=== PATIENT | female | born 1995 | race African-American/Black ===

== ENCOUNTER 2022-04-25 04:07 | Emergency (ER) | payer OTHER ==
[~2022-04-25] VITALS: Ht 157.5 cm; Wt 96.9 kg
[~2022-04-25 04:07] MED LIST: DOCU-350 PO; ESCI-8 PO; LURA40TA2 PO; NITR100C4 PO
[2022-04-25 05:10] VITALS: BP 113/71
[2022-04-25 05:49] LABS: COVID AG,FIA SOURCE NASOPHARYNGEAL
== END 2022-04-25 07:29 | disposition home or self-care (01) ==
LOC: EMS 04:08
DX: F32.9 Major depressive disorder, single episode, unspecified (principal); Z20.822 Contact with and (suspected) exposure to COVID-19; F20.9 Schizophrenia, unspecified; F60.3 Borderline personality disorder; F41.9 Anxiety disorder, unspecified; Z88.6 Allergy status to analgesic agent
CPT/HCPCS: 99284

== ENCOUNTER 2022-05-07 13:44 | Emergency (ER) | payer OTHER ==
[~2022-05-07] VITALS: Ht 170.2 cm; Wt 88.6 kg
[2022-05-07] MEDS ORDERED: IBUP-2070 PO (15:28)
[2022-05-07 15:51] VITALS: BP 128/72
== END 2022-05-07 22:05 | disposition home or self-care (01) ==
LOC: EMS 13:50
DX: R07.89 Other chest pain (principal); F41.9 Anxiety disorder, unspecified; F20.9 Schizophrenia, unspecified; F31.9 Bipolar disorder, unspecified; F60.3 Borderline personality disorder
CPT/HCPCS: 99285; Z7502